=== PATIENT | female | born 1975 | race Caucasian/White ===

== ENCOUNTER 2023-01-02 10:18 | Emergency (ER) | payer MEDICARE ==
[~2023-01-02] VITALS: Ht 162.6 cm; Wt 61.0 kg
[2023-01-02 10:35] VITALS: BP 172/89
[2023-01-02] MEDS ORDERED: TOPUD MT (11:35)
[2023-01-02] MEDS ORDERED: NAPR500T7 MT (11:35)
[2023-01-02] MEDS ORDERED: KETOROLAC 30MG/ML VIAL IM ONE (11:45)
== END 2023-01-02 16:30 | disposition home or self-care (01) ==
LOC: ER 10:58
DX: R07.81 Pleurodynia (principal)
CPT/HCPCS: 99281